=== PATIENT | male | born 1965 | race Hispanic/Latino ===

== ENCOUNTER 2018-05-08 09:33 | Outpatient (CLI) | payer MEDICARE ==
--- NOTE | 2018-05-08 14:41 | Ultrasound Report ---
Renal sonogram: History: Overactive bladder. Findings: Right kidney 11.5 x 4.4 x 4.2 cm. Cortical thickness 1.2 cm. 1.8 x 1.5 x 2 cm. Cyst right kidney upper pole measures 1.8 x 1.5 x 2 cm. Left kidney 12.2 x 5.1 x 4.8 cm. Echogenic mass measuring 1.3 x 1.6 x 1.2 cm upper pole left kidney. 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 Further evaluation recommended. Cyst upper pole right kidney.
== END 2018-05-08 09:34 | disposition home or self-care (01) ==
LOC: US 09:33
PROVIDERS: ATTEND Urology
DX: N28.1 Cyst of kidney, acquired (principal)
CPT/HCPCS: 76770

== ENCOUNTER 2019-03-14 09:54 | Outpatient (CLI) | payer MEDICARE ==
--- NOTE | 2019-03-14 11:48 | Ultrasound Report ---
ULTRASOUND RENAL INDICATION / CLINICAL INFORMATION: RENAL MASS. COMPARISON: 05/08/2018 FINDINGS: RIGHT KIDNEY: Length = 11.7 cm. [normal > 9 cm] - Parenchymal Thickness = 1.6 cm. [normal > 1.5 cm] - Echogenicity: Normal. - Hydronephrosis: None. - Cyst or mass: Stable 1.5 x 1.7 cm cyst near the superior pole. - Stones: None seen. LEFT KIDNEY: Length = 12.3 cm. [normal > 9 cm] - Parenchymal Thickness = 1.1 cm. [normal > 1.5 cm] - Echogenicity: Normal. - Hydronephrosis: None. - Cyst or mass: Stable appearance of the 1.3 cm echogenic mass near the superior pole. - Stones: None seen. URINARY BLADDER: No significant abnormality. FREE FLUID: None. ADDITIONAL FINDINGS: None. IMPRESSION: No change since 05/08/2018 exam. Simple 1.7 cm cyst in the right kidney. Stable 1.3 cm echogenic mass in the left kidney which is consistent with a lipoma or angiomyolipoma. Signer Name: Joseph Santiago Jr, MD Signed: 03/14/2019 11:44 AM Workstation Name: [id number]
== END 2019-03-14 09:55 | disposition home or self-care (01) ==
LOC: US 09:54
PROVIDERS: ATTEND Urology
DX: N28.1 Cyst of kidney, acquired (principal); N28.89 Other specified disorders of kidney and ureter
CPT/HCPCS: 76770